=== PATIENT | male | born 1940 | race Caucasian/White ===

== ENCOUNTER 2020-08-06 22:17 | Inpatient (IN) | payer OTHER, MEDICARE ==
[~2020-08-06] VITALS: Ht 195.6 cm; Wt 98.6 kg
[~2020-08-06 22:17] MED LIST: ALB0.5UD IH; ATOR20TA66 PO; BISO1TAB8 PO; FENO145T25 PO; FLO0.4C PO; FOLI0.4T14 PO; HYDR-4383 PO; MORP30TA PO; RIVA20TA PO; dextrose 50%-water 50ml dispensing syringe IV ONE; epiNEPHrine 0.1mg/ml 10ml syringe ONE; epiNEPHrine 1 mg/ml 30ml MDV ONE; etomidate 2mg/ml inj. ONE; heparin, porcine-25,000 units/D5-250ml premix IV ONE; rocuronium 10mg/ml inj IV ONE; sodium bicarbonate (8.4%) 1 mEq/ml syringe ONE
[2020-08-06 22:43] LABS: HEMOGLOBIN 9.8 g/dl (14.0-17.9); PLATELET COUNT 240 X10'3 (140-440)
[2020-08-06 22:44] LABS: BASOPHILS # (AUTO) 0.1 X10'3 (0-0.2); BASOPHILS % (AUTO) 0.5 % (0-1); EOSINOPHILS # (AUTO) 0.1 X10'3 (0-0.9); EOSINOPHILS % (AUTO) 0.8 % (0-6); HEMATOCRIT 31.6 % (42.0-52.0); LYMPHOCYTES # (AUTO) 2.1 X10'3 (1.1-4.8); MEAN CORPUSCULAR HEMOGLOBIN 22.4 PG (27.0-31.0); MEAN CORPUSCULAR HGB CONC 31.1 g/dL (33.0-36.5); MEAN CORPUSCULAR VOLUME 72.1 FL (78-98); MEAN PLATELET VOLUME 8.1 FL (7.4-10.4); MONOCYTES # (AUTO) 0.9 X10'3 (0-0.9); NEUTROPHILS % (AUTO) 75.7 % (42-75); RED BLOOD COUNT 4.38 X10'6 (4.70-6.10); RED CELL DISTRIBUTION WIDTH 17.1 % (11.5-14.5); WHITE BLOOD COUNT 13.1 X10'3 (4.5-11.0)
[2020-08-06 22:53] LABS: ALANINE AMINOTRANSFERASE 16 U/L (12-78); ALBUMIN 4.2 G/DL (3.4-5.0); ALBUMIN/GLOBULIN RATIO 1.2 (1.1-1.5); ALKALINE PHOSPHATASE 57 IU/L (46-116); ANION GAP 20 (8-16); ASPARTATE AMINO TRANSFERASE 28 U/L (10-37); BILIRUBIN,TOTAL 0.7 MG/DL (0.1-1.0); BLOOD UREA NITROGEN 31 MG/DL (7-18); BUN/CREATININE RATIO 18.8 (5.4-32.0); CALCIUM 9.5 MG/DL (8.5-10.1); CHLORIDE 103 MMOL/L (99-107); CREATININE 1.65 MG/DL (0.60-1.10); GLUCOSE 201 MG/DL (70-104); POTASSIUM 4.2 MMOL/L (3.5-5.1); SODIUM 139 MMOL/L (135-145); TOTAL CARBON DIOXIDE 16.2 MMOL/L (24-32); TOTAL PROTEIN 7.6 G/DL (6.4-8.2); eGFR 41 ML/MIN
--- NOTE | 2020-08-06 22:59 | NUR ---
PT STARTED TO DECLINE AND INTABATION PERFORMED, CENTRAL LINE BEING PLACED
[2020-08-06] MEDS ORDERED: midazolam 100mg in NS 100ml 100 ML IV PRN (23:00)
[2020-08-06] MEDS ORDERED: NORepinephrine 8mg/ 250ml NS 250 ML IV PRN (23:00)
[2020-08-06] MEDS ORDERED: heparin 10,000 units/1 ML INJ IV PRN (23:05)
[2020-08-06] MEDS ORDERED: heparin 10,000 units/1 ML INJ IV ONE (23:05)
[2020-08-06] MEDS ORDERED: heparin 25,000 UNIT/250ml bag 250 ML IV SCH (23:05)
[2020-08-06 23:20] LABS: PARTIAL THROMBOPLASTIN TIME 31 SECONDS (22-32)
--- NOTE | 2020-08-06 23:33 | NUR ---
2246 1ML EPI GIVEN, 2249 1ML EPI GIVEN, 2251 40MG ETOMIDATE, 2253 100MG MONE, 2256 BP 81/60 HR 167, 2253 OG TUBE PLACED 2253 PT INTABATED 24 AT LIP, NUMBER 8 ET TUBE 2255 BLOOD SUGAR 132 2301 1ML EPI GIVEN 2345 HEPERIN STOPPED
[2020-08-06 23:39] LABS: ABG BASE EXCESS -18.6 mmol/L (-2.0-2.0); ABG HCO3 10.6 mmol/L (22.0-26.0); ABG OXYGEN SATURATION 93.5 % (94-97); ABG PCO2 (T) 36.9 mmHg (35.0-48.0); ABG PO2 (T) 93.1 mmHg (75.0-100.0); FCOHb 0.3 % (0.0-3.9); FMetHb 0.2 % (0.0-1.5); PATIENT TEMPERATURE 36.4; PEEP 5 cm H2O; RESPIRATORY RATE 18 b/min; TIDAL VOLUME 450 mL; TOTAL HEMOGLOBIN 10.1 G/dl (14.0-18.0)
[2020-08-06] MEDS ORDERED: sodium bicarbonate (8.4%) inj. 1 MEQ/ML ML IV ONE ×2 (23:40)
[2020-08-06] MEDS ORDERED: sodium bicarbonate (8.4%) inj. 150 MEQ in dextrose 5%-water 1,000 ML IV SCH (23:40)
[2020-08-06] MEDS ORDERED: iohexol 350MG/ML 100ml bottle IV ONE (23:47)
[2020-08-06 23:54] VITALS: BP 127/95
[2020-08-07] MEDS ORDERED: K, MAG and/or Phos replacement - Verify level? MC SCH (00:15)
[2020-08-07] MEDS ORDERED: acetaminophen 325mg tablet PO PRN ×2 (00:15)
[2020-08-07] MEDS ORDERED: morphine 2 MG/ML inj. syringe IV PRN (00:15)
[2020-08-07] MEDS ORDERED: morphine 4 MG/ML inj SYRINge IV PRN (00:15)
[2020-08-07] MEDS ORDERED: midazolam 100mg in NS 100ml 100 ML IV PRN (00:15)
[2020-08-07] MEDS ORDERED: FENTANYL-0.9 % NACL/PF 100 ML IV PRN (00:15)
[2020-08-07] MEDS ORDERED: potassium Cl 20 mEq SR tablet PO PRN ×2 (00:15)
[2020-08-07] MEDS ORDERED: ondansetron/PF 4mg/2ml inj IV PRN (00:15)
[2020-08-07] MEDS ORDERED: ipratropium/albuterol 3ml nebule NEB PRN (00:15)
[2020-08-07] MEDS ORDERED: normal saline 1000ml 1,000 ML IV SCH (00:15)
[2020-08-07] MEDS ORDERED: LIDOcaine 2% 10ml TOPICAL JELLY (Urojet) TP ONE (00:15)
[2020-08-07] MEDS ORDERED: LIDOcaine 1% (10mg/ml)w/preservative injection 20ml MDV ONE (00:18)
[2020-08-07] MEDS ORDERED: nitroGLYCERIN-Tridil 50MG/D5W 250 ML IV ONE (00:18)
[2020-08-07] MEDS ORDERED: heparin 1,000unit/ml 10ml vial 10 ML ONE (00:18)
[2020-08-07] MEDS ORDERED: iohexol 350 MG/ML 50ML vial IV ONE (00:18)
[2020-08-07] MEDS ORDERED: iohexol 350 MG/1 ML 200ml bottle ONE (00:19)
--- NOTE | 2020-08-07 00:29 | NUR ---
TO analytical lab analyst
[2020-08-07] MEDS ORDERED: DOBUTamine-DoBUTrex 500mg/D5W 250 ML IV ONE (01:12)
[2020-08-07] MEDS ORDERED: pantoprazole 40 MG vial IV SCH (08:00)
[2020-08-08] MEDS ORDERED: mineral oil/petrolatum ophthal oint EACHEYE SCH (02:00)
== END 2020-08-07 01:39 | disposition expired | DRG 246 ==
LOC: ER 22:18 → ICU 2S 08-07 00:14 → UNDOADMIN 08-07 00:14 → UNDODISIN 08-07 01:39
PROVIDERS: ADMIT Internal Medicine Critical Care Medicine; ATTEND Internal Medicine Critical Care Medicine
PROC: 5A1935Z Respiratory Ventilation, Less than 24 Consecutive Hours (ICD-10-PCS; 2020-08-06)
PROC: 0BH17EZ Insertion of Endotracheal Airway into Trachea, Via Natural or Artificial Opening (ICD-10-PCS; 2020-08-06)
PROC: 02HV33Z Insertion of Infusion Device into Superior Vena Cava, Percutaneous Approach (ICD-10-PCS; 2020-08-06)
PROC: B548ZZA Ultrasonography of Superior Vena Cava, Guidance (ICD-10-PCS; 2020-08-06)
PROC: 0D9670Z Drainage of Stomach with Drainage Device, Via Natural or Artificial Opening (ICD-10-PCS; 2020-08-06)
PROC: 04HY32Z Insertion of Monitoring Device into Lower Artery, Percutaneous Approach (ICD-10-PCS; 2020-08-06)
PROC: 4A133B1 Monitoring of Arterial Pressure, Peripheral, Percutaneous Approach (ICD-10-PCS; 2020-08-06)
PROC: 4A133J1 Monitoring of Arterial Pulse, Peripheral, Percutaneous Approach (ICD-10-PCS; 2020-08-06)
PROC: 4A023N7 Measurement of Cardiac Sampling and Pressure, Left Heart, Percutaneous Approach (ICD-10-PCS; principal; 2020-08-07)
PROC: 027034Z Dilation of Coronary Artery, One Artery with Drug-eluting Intraluminal Device, Percutaneous Approach (ICD-10-PCS; 2020-08-07)
PROC: B2111ZZ Fluoroscopy of Multiple Coronary Arteries using Low Osmolar Contrast (ICD-10-PCS; 2020-08-07)
PROC: 5A12012 Performance of Cardiac Output, Single, Manual (ICD-10-PCS; 2020-08-07)
PROC: B32T1ZZ Computerized Tomography (CT Scan) of Left Pulmonary Artery using Low Osmolar Contrast (ICD-10-PCS; 2020-08-07)
PROC: B3201ZZ Computerized Tomography (CT Scan) of Thoracic Aorta using Low Osmolar Contrast (ICD-10-PCS; 2020-08-07)
PROC: B32S1ZZ Computerized Tomography (CT Scan) of Right Pulmonary Artery using Low Osmolar Contrast (ICD-10-PCS; 2020-08-07)
PROC: B4201ZZ Computerized Tomography (CT Scan) of Abdominal Aorta using Low Osmolar Contrast (ICD-10-PCS; 2020-08-07)
PROC: B4241ZZ Computerized Tomography (CT Scan) of Superior Mesenteric Artery using Low Osmolar Contrast (ICD-10-PCS; 2020-08-07)
PROC: B4281ZZ Computerized Tomography (CT Scan) of Bilateral Renal Arteries using Low Osmolar Contrast (ICD-10-PCS; 2020-08-07)
PROC: B4211ZZ Computerized Tomography (CT Scan) of Celiac Artery using Low Osmolar Contrast (ICD-10-PCS; 2020-08-07)
DX: I21.09 ST elevation (STEMI) myocardial infarction involving other coronary artery of anterior wall (principal); J18.9 Pneumonia, unspecified organism; I48.20 Chronic atrial fibrillation, unspecified; E87.2 Acidosis; E78.5 Hyperlipidemia, unspecified; I10 Essential (primary) hypertension; I25.10 Atherosclerotic heart disease of native coronary artery without angina pectoris; I25.2 Old myocardial infarction; Z82.49 Family history of ischemic heart disease and other diseases of the circulatory system; Z86.73 Personal history of transient ischemic attack (TIA), and cerebral infarction without residual deficits; Z87.891 Personal history of nicotine dependence; Z95.5 Presence of coronary angioplasty implant and graft; I95.9 Hypotension, unspecified; I46.9 Cardiac arrest, cause unspecified
CPT/HCPCS: 31500; 36556; 92920; 92950; 93454; 99291; 99292; C9606; 36415; 36600; 71045; 71275; 74174; 76937; 80053; 82803; 82948; 83880; 84484; 85018; 85025; 85347; 85610; 85730; 87070; 87635; 93005; 94002; 94760; A6258; C1725; C1751; C1769; C1874; C1894; C9803; G0378; J0171; J1250; J1644; J2001; J3490; Q9967